=== PATIENT | female | born 1990 | race Caucasian/White ===

== ENCOUNTER 2023-09-02 12:58 | Emergency (ER) | payer OTHER, SELFPAY ==
[2023-09-02 13:03] VITALS: BP 123/78; PULSE 72; RESP 18; TEMP 37.4; O2SAT 98; BMI 23.5
[2023-09-02 16:15] LABS: Amphetamine Screen Urine Negative (Negative); Barbiturate Screen Urine Negative (Negative); Benzodiazepines Screen Urine Negative (Negative); Cannabinoid Screen Urine POSITIVE (Negative); Cocaine Screen Urine Negative (Negative); Methadone Screen Urine Negative (Negative); Methamphetamines Screen Urine Negative (Negative); Opiate Screen Urine Negative (Negative); Oxycodone Screen Urine Negative (Negative); Phencyclidine Screen Urine Negative (Negative); Tricyclic Antidepressant Urine Negative (Negative)
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
[2023-09-02] MEDS: LORazepam 1 MG TABLET PO (16:42)
== END 2023-09-02 17:10 | disposition home or self-care (01) ==
LOC: ED 16:45
PROVIDERS: Emergency Provider Emergency Medicine Emergency Medical Services
DX: F32.A Depression, unspecified (principal); F41.9 Anxiety disorder, unspecified; G47.00 Insomnia, unspecified
CPT/HCPCS: 80306; 99283; 99284; A9270

== ENCOUNTER 2025-04-01 22:30 | Inpatient (IN) | payer OTHER, SELFPAY ==
[2025-04-01 20:47] VITALS: BP 137/86; PULSE 70; PULSE 81; RESP 20; TEMP 36.6; O2SAT 96
[2025-04-01 20:52] VITALS: PULSE 77; O2SAT 97
[2025-04-01 21:07] VITALS: BP 133/82; PULSE 67
[2025-04-01 21:35] LABS: Amnisure Rom* POSITIVE
[2025-04-01] MEDS: AMPICILLIN 2 GM in 0.9 % SODIUM CHLORIDE Mini-bag 100 ML IVPB (22:45)
--- NOTE | 2025-04-01 23:12 | PM.OBHPLI ---
OB - H&P: HPI Labor/Induction History of Present Illness Time Seen by Provider: 22:45 Date Seen: 04/01/25 Chief Complaint: The patient is a 35 year old 1 para 0 at 35 4/7 weeks gestation by LMP c/w 10wk US, who presents with a gush of fluid x 2 at home. Chief complaint: maternity : 1 Date of last menstrual period: 07/26/24 Estimated date of delivery: 05/02/25 Gestational age based on last menstrual period: 35 Narrative: Marely De Los Santos is a 35 year old at 35 4/7 weeks gestation by LMP c/w 10wk US, who presents with a gush of fluid x 2 at home. Pt reports it was around 6:30-6:45 pm tonight and noticed small gush of fluid and was not sure if water broke or urine but then had another 'large' gush fluid and knew her water broke so came to Center. Fluid was clear. She has had some intermittent cramping all day, not increasing in strength or frequency but is noticing more in back now last few hours. Not sure how often feeling cramping as inconsistent. No current headaches. No recent illness. significant for: chronic headaches, more frequent this , typically resolve with tylenol. At 33 5/7 wks developed increased LE edema and BP was increasing (but still all <140/90) so had preeclamptic labs which were negative. BP's in clinic have all remained <140/90. no persistent headaches. Edema same since then. Has not gotten home BP cuff yet. No hx htn. History of Present Dating criteria: based on LMP care: good care Ultrasounds: normal 1st trimester US, normal mid trimester US ( anatomy EFW = 97%) and other (growth US 03/25/25 at 36wks EFW = 90%) Labs Blood type: A (+) positive Rubella: immune RPR/VDLR: nonreactive GBS status: unknown HBsAG: negative Meds Home Medications and Allergies Home Medications ?Medication ?Instructions ?Recorded ?Confirmed ?Type buspirone 5 mg tablet 5 mg PO BID 12/23/24 04/01/25 History citalopram 40 mg tablet 40 mg PO DAILY 12/23/24 04/01/25 History docosahexaenoic acid PO 12/23/24 03/01/25 History famotidine 10 mg tablet (Acid 10 mg PO BID 04/01/25 04/01/25 History Controller) ferrous sulfate 325 mg (65 mg 325 mg PO DAILY 04/01/25 04/01/25 History iron) tablet Allergies Allergy/AdvReac Type Severity Reaction Status Date / Time cefuroxime (From Ceftin) Allergy Verified 04/01/25 23:33 OB - H&P: Exam Physical Exam: Vital signs: Temp Pulse Resp BP Pulse Ox 98 F 67 20 133/82 97 04/01/25 20:47 04/01/25 21:07 04/01/25 20:47 04/01/25 21:07 04/01/25 20:52 Constitutional: Constitutional: no acute distress and cooperative Routine HEENT Exam: Head: Present normal inspection Eye: Present normal appearance ENT: Present mucous membranes moist Routine Neck Exam: Neck: Present normal inspection; Absent thyromegaly Routine Respiratory Exam: Respiratory: Present CTA bilaterally Routine Cardiovascular Exam: Cardiovascular: RRR Detailed Labor and Delivery Exam: Patient Gravid: yes Comments: per RN in triage /-1 Fetus (Single): Heart Rate Baseline: 120 Monitor Accelerations: Present Monitor Decelerations: None Custodial Variability: Moderate (6-25) Routine Extremities Exam: Extremities: Present pedal edema Routine Psychiatric Exam: Present normal affect and good judgment OB - Problem Based A/P Additional Plan (1) premature rupture of membranes: Problem details: PPROM 04/01/25 around 6:30-6:45pm, clear fluid Status: Acute Plan: -GBS unknown, discussed need for abx due to . Hx allergy to ceftin with hives, has tolerated Amox multiple times. Abx started. -discussed PPROM with pt and SO. Reviewed initially can monitor for few hours to see if transitioning into labor and then if not, need to consider risks vs benefits of expectant management vs induction. Reviewed risks vs benefits and various guidelines/recommendations regarding expectant management or induction with her and S.O. and they are in agreement with induction with pitocin if not clearly progressing into labor -discussed late infants and possible increased need of cares. All ?'s answered. -will need peds at delivery due to status, Dr Norwood notified (2) 35 weeks gestation of : Status: Acute
[2025-04-01 23:22] LABS: Hematocrit 33.7 % (33.0-51.0); Hemoglobin* 10.7 gm/dL (12.0-16.0); Immature Granulocytes Pct Auto 1.4 %; Mean Corpuscular HGB Conc 32 gm/dL (32-36); Mean Corpuscular Hemoglobin 29 pg (26-34); Mean Corpuscular Volume 91 fL (80-100); RDW Coefficient of Variation % 13.5 % (11.5-15.5); Red Blood Count 3.69 m/uL (4.00-5.20); White Blood Count* 11.07 K/uL (4.50-11.00)
[2025-04-01 23:25] LABS: Immature Granulocytes Abs Auto 0.20 K/uL (0.00-0.30); Lymphocytes Absolute Auto 3.50 K/uL (0.90-2.90); Slide Review Reflex No
[2025-04-01 23:35] VITALS: TEMP 36.7; BMI 38.5
[2025-04-02] VITALS (53 sets, daily range): BP systolic 114–170; BP diastolic 58–99; PULSE 63–93; RESP 16–20; TEMP 36.4–37; O2SAT 92–99
--- NOTE | 2025-04-02 00:55 | P.OBPN_ITS ---
Subjective Time Seen by Provider: 00:45 Date Seen: 04/02/25 Narrative: pt reports getting more uncomfortable. Feeling more pressure, more back pain, more cramping. Objective Vital Signs: Last Vital Signs Temp 98.0 F 04/01/25 23:35 Pulse 67 04/01/25 21:07 Resp 20 04/01/25 20:47 BP 133/82 04/01/25 21:07 Pulse Ox 97 04/01/25 20:52 Pelvic Exam Dilation (cm): 3 Effacement (%): 90 Station: 0 Contractions Monitor mode: External Contraction pattern: Irregular Assessment Assessment: early labor Station: 0 Amniotic Membrane Status: SROM Heart Rate Baseline: 120 [place] Variability: Moderate (6-25) Monitor Accelerations: Present Monitor Decelerations: None Plan Plan: 35yo G1 at 35 5/7wks gestation here with PPROM -pt is progressing into active labor, continue expectant management -GBS unknown, on abx -pt and S.O without ?'s
[2025-04-02] MEDS: AMPICILLIN 1 GM in 0.9 % SODIUM CHLORIDE Mini-bag 100 ML IVPB ×2 (02:39→06:35)
[2025-04-02] MEDS: LACTATED RINGERS 1000 ML 1,000 ML IV ×2 (03:30→04:12)
[2025-04-02] MEDS: ONDANSETRON 2 MG/ML inj 4 MG IV (03:42)
[2025-04-02 04:08] LABS: Protein Creatinine Ratio Urine 0.45 (0-0.19)
[2025-04-02 04:13] LABS: Alanine Aminotransferase* 24 U/L (4-35); Aspartate Amino Transferase* 31 U/L (12-35); Creatinine* 0.6 mg/dL (0.5-1.5); Est. Creatinine Clearance* 129.69; Estimated Glomerular Filt Rate 121 ml/min
[2025-04-02] MEDS: LIDOCAINE 2% (PF) 5 ML VIAL EPIDURAL (04:27)
[2025-04-02] MEDS: ROPIVACAINE 0.2% 100 ml 100 ML 12 MG EPIDURAL (04:30)
--- NOTE | 2025-04-02 04:39 | P.ANBPRC_ITS ---
[facility] Medical History (Updated 04/01/25 @ 23:30 by Haley Whatley DO) Depression ?F32.A - Depression, unspecified (ICD-10) Migraine ?G43.909 - Migraine, unspecified, not intractable, without status migrainosus (ICD-10) Surgical History (Updated 04/01/25 @ 23:25 by Haley Whatley DO) S/P tonsillectomy ?Z90.89 - Acquired absence of other organs (ICD-10) Social History What is your current living situation?: I presently have a place to live Problems where you live: no known problems In the past 12 months, utilities in danger of being shut off: no In past 12 months, lack of transportation kept you from medical appts, meetings, work, or getting things needed for daily living: no In the past 12 mos, have been you worried that your food would run out before you had money to buy more?: never true In the past 12 mos, the food you bought just didn't last and you didn't have money to buy more?: never true Smoking Status: Former smoker How often does anyone, including family, friends and others, physically hurt you : never How often does anyone, including family, friends and others, insult or talk down to you: never How often does anyone, including family, friends and others, threaten you with harm: never How often does anyone, including family, friends and others, scream or curse at you: never Meds Home Medications and Allergies Home Medications ?Medication ?Instructions ?Recorded ?Confirmed ?Type buspirone 5 mg tablet 5 mg PO BID 12/23/24 5 History citalopram 40 mg tablet 40 mg PO DAILY 12/23/2411/20 History docosahexaenoic acid PO 12/23/24 03/01/25 History famotidine 10 mg tablet (Acid 10 mg PO BID 04/01/25 History Controller) ferrous sulfate 325 mg (65 mg 325 mg PO DAILY 04/01/25 04/01/25 History iron) tablet Allergies Allergy/AdvReac Type Severity Reaction Status Date / Time cefuroxime (From Ceftin) Allergy Verified 04/01/25 23:33 Results Labs Labs: Laboratory Results - last 24 hr 04/01/25 04/01/25 04/02/25 21:17 22:26 03:45 WBC 11.07 H RBC 3.69 L Hgb 10.7 L Hct 33.7 MCV 91 MCH 29 MCHC 32 RDW Coeff of Cassie 13.5 Plt Count 280 Neut % (Auto) 57.3 Lymph % (Auto) 31.5 [place] % (Auto) 8.6 Eos % (Auto) 0.9 Baso % (Auto) 0.3 Neut # (Auto) 6.30 Lymph # (Auto) 3.50 H [place] # (Auto) 1.00 H Eos # (Auto) 0.10 Baso # (Auto) 0.00 Abs Immat Gran (auto) 0.20 Imm/Tot Granulo (auto) 1.4 Creatinine 0.6 Estimated Creat Clear 129.69 Estimated GFR 121 AST 31 ALT 24 Urine Creatinine Protein/Creatinin Ratio Urine Total Protein Membrane Rupture POSITIVE 04/02/25 04/02/25 03:53 04:01 WBC RBC Hgb Hct MCV MCH MCHC RDW Coeff of Cassie Plt Count 344 Neut % (Auto) Lymph % (Auto) [place] % (Auto) Eos % (Auto) Baso % (Auto) Neut # (Auto) Lymph # (Auto) [place] # (Auto) Eos # (Auto) Baso # (Auto) Abs Immat Gran (auto) Imm/Tot Granulo (auto) Creatinine Estimated Creat Clear Estimated GFR AST ALT Urine Creatinine 64.9 Protein/Creatinin Ratio 0.45 H Urine Total Protein 29 Membrane Rupture Vital Signs Vital Signs: Last Vital Signs Temp 97.9 F 04/02/25 03:57 Pulse 85 04/02/25 04:38 Resp 20 04/02/25 03:57 BP 128/69 04/02/25 04:38 Pulse Ox 94 04/02/25 04:36 Weight: 111.674 kg Height: 170.18 cm Anesthesia Procedures Epidural Insertion Patient Location: OB Start Time: 04:00 Stop Time: 05:00 Start Date: 04/02/25 Stop Date: 04/02/25 Reason for Block: procedure for pain Patient Position: sitting Performed By: Kera Barragan Preanesthetic Checklist: IV checked, risks and benefits discussed, monitors and equipment checked, pre-op evaluation, timeout performed and anesthesia consent Prep: chlorhexidine gluconate Monitoring: blood pressure monitoring, continuous pulse oximetry and heart rate Approach: midline Vertebral Space: lumbar (1-5) Epidural Technique: ANGEL saline Needle Type: Tuohy needle Injection Technique: continuous catheter (continuous catheter) Needle gauge: 17 Needle Length (cm): 10 cm Needle Insertion Depth (cm): 8 Catheter Gauge: 19 Catheter Type: multi-orifice Catheter at skin depth (cm): 15 Test Dose Result: negative and lidocaine 1.5% with epinephrine 1 to 200,000
--- NOTE | 2025-04-02 05:20 | PM.OBPNL ---
Subjective Time Seen by Provider: 05:15 Date Seen: 04/02/25 Narrative: Pt became more more uncomfortable and requested and received epidural. she is feeling comfortable currently. Prior to epidural, BP's noted to be elevated, preeclampsia labs negative except PCR positive at 0.45. Has had 1 BP in severe range, remainder below. Now with epidural, bp's closer 120/70 range. Pt did have one 2min decel which recovered with changing to right side. Objective Vital Signs: Last Vital Signs Temp 98.0 F 04/02/25 05:05 Pulse 88 04/02/25 05:17 Resp 18 04/02/25 05:05 BP 122/63 04/02/25 05:17 Pulse Ox 92 04/02/25 05:00 Pelvic Exam Dilation (cm): 39.5 Effacement (%): 100 Station: +1 Contractions Monitor mode: External Contraction Frequency: q2min Contraction pattern: Regular Assessment Assessment: active labor Station: +1 Amniotic Membrane Status: SROM Heart Rate Baseline: 130 Group Home Variability: Moderate (6-25) Monitor Accelerations: Present Monitor Decelerations: Prolonged Plan Plan: 35yo G1 at 35 55/7wk admitted with PPROM, now in active labor with preeclampsia -continue with expectant management -FP/peds provider present
[2025-04-02] MEDS: LACTATED RINGERS 1000 ML 1,000 ML 125 ML IV (07:45)
[2025-04-02] MEDS: OXYTOCIN 30 unit/500 ML in NS 30 UNIT/500 ML BAG IVPB (08:33)
[2025-04-02] MEDS: LIDOCAINE 1 % PF 30 ML INJECTION (08:40)
--- NOTE | 2025-04-02 09:15 | W.PM.VAGDEL1 ---
Procedure Procedure Done: Global Events: Pre-Eclampsia Delivery monitor: external FHT and external uterine Route of delivery: Episiotomy description: Left Mediolateral Laceration description: Perineal - 2nd Degree (extension of episiotomy) Estimated blood loss (mL): 300 Anesthesia type: Epidural Disposition: floor Narrative: The patient is a 35 year-old admitted on 04/01/2025 at 35 Weeks, 4 Days gestation for PPROM at 1830.? Cervical exam on admission was 2 cm dilated with membranes ruptured in vertex presentation.? Contractions became more regular and strong around 0330 on 04/02/2025 at which time an epidural was requested ? heart rate demonstrated baseline 125 bpm with moderate variability, + accelerations, - decelerations; a category 1 tracing.? SROM occurred at 1830 with clear fluid. ? Labor Analgesia:? epidural ? Pitocin:? started with due to lack of contractions ? Labor onset:? 0330 ? Complete:? 0535 ? Pushing:? 0549 ? heart tones during second stage were category 2. ? At 1845 a viable female infant delivered in vertex OA presentation. Prior to the final contraction, a right mediolateral episiotomy was cut due to a tight band at the introitus, lack of contractions and maternal exhaustion which necessitated facilitating the delivery. ? Infant was placed on maternal abdomen.? Cord was clamped and cut after a 30-60 second delay.? Nose and mouth were bulb suctioned.? Infant weight pending.? 6 at 1 minute and 8 at 5 minutes.? Shoulder dystocia: no.? Nuchal cord: no. ? Placenta delivered spontaneously and complete at 1849 with a 3 vessel cord. ? Mother and infant were stable after delivery. ? Lacerations:? extension of the episiotomy, repaired with 3-0 vicryl suture. ? Blood loss: 300 mL. Blood loss measurement type: QBL ? Sponge and needles counts are correct.
--- NOTE | 2025-04-02 09:42 | PM.ANPOST ---
Post Anesthesia Note Post Anesthesia Note Patient seen: Inpatient Respiratory Status: adequate Cardiovascular Status: adequate Mental Status: baseline Pain: adequate Temp: baseline Anesthetic awareness: N/A Complications: none Follow care: none
[2025-04-02] MEDS: ACETAMINOPHEN 500 MG TABLET 1000 MG PO ×2 (12:26→18:48)
[2025-04-02] MEDS: IBUPROFEN 600 MG TABLET PO (15:47)
[2025-04-02] MEDS: LANOLIN CREAM 1 APPLIC TOPICAL (15:52)
[2025-04-03] VITALS (8 sets, daily range): BP systolic 122–139; BP diastolic 74–90; PULSE 68–90; RESP 16–18; TEMP 36.6–37; O2SAT 75–98
[2025-04-03] MEDS: ACETAMINOPHEN 500 MG TABLET 1000 MG PO ×3 (04:36→19:26)
[2025-04-03 05:57] LABS: Hemoglobin* 9.3 gm/dL (12.0-16.0)
--- NOTE | 2025-04-03 06:20 | P.OBPN_ITS ---
OB - PN:Subj Subjective Date Seen: 04/03/25 Interval history: Marely is a 35 yo now pp day #1 after an at 35+5 weeks. Pain is well controlled as long as she takes Tylenol and ibuprofen regularly. Patient comments OB post-: pain well controlled, perineal pain, tolerating diet and flatus present [place] status: and doing well [place] feeding status: exclusively OB - PN: Obj Exam Physical Exam: Vital signs: Temp Pulse Resp BP Pulse Ox O2 Del Method 97.8 F 75 16 136/76 75 L Room Air 04/03/25 04:38 04/03/25 04:38 04/03/25 04:38 04/03/25 05:44 04/03/25 05:44 04/03/25 01:07 Constitutional: Constitutional: no acute distress Routine Abdominal Exam: Abdominal: Present soft Fundus: Present firm (2U) Routine Neurological Exam: Neurological: Present alert and oriented X3 Routine Psychiatric Exam: Psychiatric: Present normal affect and normal thought process OB - PN: Obj Data Labs Labs: Laboratory Results - last 24 hr 04/03/25 05:50 Hgb 9.3 L OB - PN: A/P Delivery Assessment and Plan (1) premature rupture of membranes: Problem details: PPROM 04/01/25 around 6:30-6:45pm, clear fluid Status: Acute (2) Pre-eclampsia: Status: Acute (3) (normal spontaneous vaginal delivery): Status: Acute Plan 1. Routine cares. 2. BP adequately controlled with oral nifedipine. 3. Likely d/c tomorrow if continues to do well and BP continues to be adequately managed. Plan day: 1 Plan: routine care
[2025-04-03] MEDS: DOCUSATE SODIUM 100 MG CAPSULE PO (07:57)
[2025-04-03] MEDS: IBUPROFEN 600 MG TABLET PO ×2 (07:57→17:31)
[2025-04-03] MEDS: BENZOCAINE/MENTHOL SPRAY 85 GM AEROSOL 1 APPLIC TOPICAL (12:10)
[2025-04-03 19:48] LABS: Hematocrit 30.2 % (33.0-51.0); Hemoglobin* 9.5 gm/dL (12.0-16.0); Mean Corpuscular HGB Conc 32 gm/dL (32-36); Mean Corpuscular Hemoglobin 29 pg (26-34); Mean Corpuscular Volume 93 fL (80-100); Red Blood Count 3.26 m/uL (4.00-5.20); Slide Review Reflex No; White Blood Count* 10.93 K/uL (4.50-11.00)
[2025-04-03 20:05] LABS: Alanine Aminotransferase* 26 U/L (4-35); Aspartate Amino Transferase* 44 U/L (12-35); Blood Urea Nitrogen* 8 mg/dL (5-24); Creatinine* 0.7 mg/dL (0.5-1.5); Est. Creatinine Clearance* 111.16; Estimated Glomerular Filt Rate 117 ml/min
[2025-04-03] MEDS: METOCLOPRAMIDE 10 MG TABLET PO (21:10)
--- NOTE | 2025-04-03 21:17 | P.OBPN_ITS ---
OB - PN:Subj Subjective Date Seen: 04/03/25 Interval history: Notified by RN around 1930 that patient was experiencing headache refractory to analgesics and worsening LE edema. Patient shares that she has chronic headaches at baseline, but current headache feels somewhat different. She endorses that she has not slept much in the past 2 days. Additionally, she usually has caffeine which she has not had much of since arriving to the hospital. She denies vision changes. No specific RUQ tenderness but reports b/l upper abdominal tenderness beneath the ribs, which she suspects is from delivery yesterday. Denies dyspnea. Last dose of Tylenol was at 1925. She reports that headache seems to be diminishing, but still present. OB - PN: Obj Exam Physical Exam: Vital signs: Temp Pulse Resp BP Pulse Ox O2 Del Method 98.1 F 68 18 122/77 98 Room Air 04/03/25 19:29 04/03/25 19:29 04/03/25 19:29 04/03/25 19:29 04/03/25 19:29 04/03/25 19:29 Narrative: Gen: alert, pleasant, NAD Resp: breathing comfortably on room air, CTA b/l CV: RRR, no murmurs Abd: b/l mild subcostal tenderness to palpation; fundus is firm Extremities: 2-3+ pitting edema in ankles and dorsum of feet b/l OB - PN: Obj Data Labs Labs: Laboratory Results - last 24 hr 04/03/25 04/03/25 05:50 19:41 WBC 10.93 RBC 3.26 L Hgb 9.3 L 9.5 L Hct 30.2 L MCV 93 MCH 29 MCHC 32 Plt Count 312 BUN 8 Creatinine 0.7 Estimated Creat Clear 111.16 Estimated GFR 117 AST 44 H ALT 26 OB - PN: A/P Delivery Assessment and Plan (1) premature rupture of membranes: Problem details: PPROM 04/01/25 around 6:30-6:45pm, clear fluid Status: Acute (2) Pre-eclampsia: Status: Acute (3) (normal spontaneous vaginal delivery): Status: Acute (4) headache: Status: Acute Assessment and Plan: Repeated HELLP labs which showed interval increase in AST, although not 2x ULN. Headache improving, although still present. Question whether headache meets criteria for severe feature of pre-eclampsia. Discussed case with [employer] on- call, Dr. Cadena. At this time, plan to administer Benadryl 25 mg & Reglan 10 mg PO for headache. Strongly encouraged patient prioritize getting some sleep. Could consider Excedrin in place of next dose of Tylenol to account for possible caffeine-withdrawal component of headache. Plan to repeat labs around 0130 on 04/04. If headache persists or worsens OR if labs indicate severe features, would then initiate magnesium IV. Discussed with patient and spouse in detail, who are agreeable with plan. Plan day: 1
[2025-04-04 01:26] LABS: Hematocrit 30.0 % (33.0-51.0); Hemoglobin* 9.5 gm/dL (12.0-16.0); Mean Corpuscular HGB Conc 32 gm/dL (32-36); Mean Corpuscular Hemoglobin 30 pg (26-34); Mean Corpuscular Volume 94 fL (80-100); Red Blood Count 3.20 m/uL (4.00-5.20); White Blood Count* 10.31 K/uL (4.50-11.00)
[2025-04-04 01:29] LABS: Slide Review Reflex No
[2025-04-04 01:35] LABS: Alanine Aminotransferase* 25 U/L (4-35); Aspartate Amino Transferase* 41 U/L (12-35); Blood Urea Nitrogen* 10 mg/dL (5-24); Creatinine* 0.6 mg/dL (0.5-1.5); Est. Creatinine Clearance* 129.69; Estimated Glomerular Filt Rate 121 ml/min
[2025-04-04 05:14] VITALS: BP 136/88; PULSE 73; RESP 18; TEMP 36.9; O2SAT 99
[2025-04-04 08:30] VITALS: BP 129/89; PULSE 95; RESP 20; O2SAT 97
[2025-04-04] MEDS: ASPIRIN/ACETAMINOPHEN/CAFFEINE 1 TABLET 1 TAB PO (09:16)
--- NOTE | 2025-04-04 10:32 | P.DS_ITS ---
DS: Providers Provider Date Seen: 04/04/25 Date of admission: 04/01/25 22:30 Primary care physician: Paula Norwood MD Admitting Clinician: Haley Whatley DO Attending Physician on discharge: Hilda Pickard DO Date of Discharge: 04/04/25 Exam Narrative: Exam Narrative: Gen: alert, pleasant, NAD Resp: breathing comfortably on room air, CTA b/l CV: RRR, no murmurs Abd: b/l mild subcostal tenderness to palpation; fundus is firm Extremities: 2-3+ pitting edema in ankles and dorsum of feet b/l Const: Vital Signs, click to edit/add: Vital Signs - 24 hr 04/03/25 12:00 04/03/25 16:30 04/03/25 19:29 Temperature 98.0 F 98.4 F 98.1 F Pulse Rate [Pulse Oximeter] 90 68 68 Respiratory Rate 16 16 18 Blood Pressure [Ri ght Arm] 124/74 136/88 122/77 Pulse Oximetry 98 95 98 Oxygen Delivery Me thod Room Air Room Air Room Air 04/03/25 23:06 04/04/25 05:14 04/04/25 08:30 Temperature 98.6 F 98.5 F Pulse Rate [Pulse Oximeter] 68 73 95 Respiratory Rate 18 18 20 Blood Pressure [Ri ght Arm] 138/84 136/88 129/89 Pulse Oximetry 98 99 97 Oxygen Delivery Me thod Room Air Room Air Room Air OB - DS: Summary Hospital Course Hospital Course: Marely is a 35 year-old admitted on 04/01/2025 at 35 Weeks, 4 Days gestation for PPROM at 1830.? On 04/02/2025 at 35.5 weeks' gestation, she delivered a viable female infant, Abby. During delivery, a left mediolateral episiotomy was cut which was subsequently repair following delivery of . Placenta delivered spontaneously and intact. During labor, she developed elevated blood pressures and had proteinuria (PCR 0.45), meeting criteria for diagnosis of pre-eclampsia without severe features. She was started on PO nifedipine 30 mg on PPD 0 and blood pressures have since been controlled. On evening of PPD 1, she was evaluated for significant LE edema and new headache refractory to analgesics. This resolved with rest, Reglan, and benadryl. On PPD 2, the headache from the night prior had resolved and she reported a dull headache that was consistent with her usual chronic headaches. She denies vision changes or RUQ pain. Swelling remains notable in lower extremities. She is diuresing well. She will be discharged home with a blood pressure cuff along with a prescription for PO nifedipine. S/sx of pre-eclampsia with severe features were reviewed in detail. She will follow up with PCP for BP check on Saturday, 04/07. Peripartum Data Episiotomy description: Left Mediolateral Infant Gender: Female Time Spent with Patient Time attestation: Total time spent providing and/or coordinating discharge services: Discharge Plan Discharge Disposition: Home, Self-Care Date of Admission: 04/01/25 22:30 Attending Provider on Discharge: Hilda Pickard Primary Care Provider: Paula Norwood Condition: Stable Anticipated Discharge Date/Time: 04/04/25 10:40 Discharge Medications: New nifedipine 30 mg Tablet Extended Release 30 mg PO DAILY Qty: 30 0RF acetaminophen 500 mg Tablet 1,000 mg PO Q6H PRNQty: 40 0RF docusate sodium 100 mg Capsule 100 mg PO DAILY Qty: 30 0RF ibuprofen 600 mg Tablet 600 mg PO Q6H PRNQty: 40 0RF Continued buspirone 5 mg tablet 5 mg PO BID citalopram 40 mg tablet 40 mg PO DAILY docosahexaenoic acid [ DHA] 1 cap PO DAILY famotidine [Acid Controller] 10 mg tablet 10 mg PO BID ferrous sulfate 325 mg (65 mg iron) tablet 325 mg PO DAILY Discharge Orders: Discharge Order (Routine); Ordered 04/04/25 Ordered By: Hilda Pickard Patient Education: Preeclampsia and Eclampsia After Delivery (GEN), OB Vaginal/Breast Feeding Follow Up Appointments: Paula Norwood MD [Primary Care Provider, Family Practice] Forms: Patient Belongings, [facility] Info Instructions Discharge Comments: Follow up with blood pressure check post- on 04/07 at 3:[address] Norwood at [facility].
[2025-04-04] MEDS: ACETAMINOPHEN 500 MG TABLET 1000 MG PO (11:25)
[2025-04-04 13:08] VITALS: BP 122/64; PULSE 74; RESP 18; O2SAT 97
== END 2025-04-04 14:56 | disposition home or self-care (01) | DRG 805 ==
LOC: OB OUT 04-02 01:27 → OB 04-02 01:27
PROVIDERS: Family Medicine; Admitting Provider Family Medicine; PCP Family Medicine; Visit Provider Family Medicine
DX: O42.013 Preterm premature rupture of membranes, onset of labor within 24 hours of rupture, third trimester (principal); O60.14X0 Preterm labor third trimester with preterm delivery third trimester, not applicable or unspecified; O14.04 Mild to moderate pre-eclampsia, complicating childbirth; Z3A.35 35 weeks gestation of pregnancy; R51.9 Headache, unspecified; Z37.0 Single live birth
CPT/HCPCS: 01967; 36415; 82565; 82570; 84112; 84156; 84450; 84460; 84520; 85018; 85025; 85027; 85049; 86592; 86850; 86900; 86901; 88307; 99199; G0463; A9270; J0290; J2003; J2405; J2795; J7120